=== PATIENT | female | born 1995 | race Two or more races ===

== ENCOUNTER 2024-05-09 05:17 | Emergency (ER) | payer MEDICAID, SELFPAY ==
[2024-05-09 05:18] VITALS: BMI 29.2
[2024-05-09 05:23] VITALS: BP 105/72; PULSE 84; RESP 20; TEMP 37; O2SAT 95
--- NOTE | 2024-05-09 05:55 | XR_ITS ---
Examination: Complete OB ultrasound, less than 14 weeks, transabdominal Date and time of exam: May 09, 2024 0709 hrs. Indications: Onset vaginal bleeding and pelvic soreness today Technique: Obstetrical ultrasound images less than 14 weeks performed via transabdominal imaging Findings: A normal shaped single intrauterine gestation is present in the uterus. pole 1.2 cm corresponds to 7 weeks 3 days gestational age No subchorionic hemorrhage Cardiac motion 155 BPM Ultrasonographic survey of visible and placental structures unremarkable. Amniotic fluid volume appears appropriate for this estimated gestational age. Right ovary 2.9 x 2.0 x 2.2 cm arterial flow Left ovary 2.8 x 1.6 x 2.4 cm arterial flow Impression: Viable intrauterine gestation 7 weeks 3 days Cardiac motion 155 BPM No subchorionic hemorrhage Negative for ovarian torsion.
--- NOTE | 2024-05-09 05:55 | PD.EDRME ---
Rapid Medical Screening Exam [facility] Arrival date/time: 05/09/24 05:17 29F at approximately 8 weeks and with no significant PMH presents to ED with 2 days of pelvic pain and vaginal bleeding. Chief Complaint: Vaginal Bleeding Vital signs: Vital Signs Temperature 98.6 F 05/09/24 05:23 Pulse Rate 84 05/09/24 05:23 Respiratory Rate 20 05/09/24 05:23 Blood Pressure 105/72 05/09/24 05:23 Pulse Oximetry (%) 95 05/09/24 05:23 Oxygen Delivery Method Room Air 05/09/24 05:23
[2024-05-09 06:08] LABS: Collection Type, Urine Clean Catch
[2024-05-09 06:17] LABS: Bilirubin,Urine Negative (Negative); Blood,Urine 3+ (Negative); Clarity,Urine Turbid (Clear/Hazy); Color,Urine Yellow (Lt Yel-Yel); Glucose, Urine Negative (Negative); Ketones,Urine Negative (Negative); Leukocyte Esterase,Urine Negative (Negative); Nitrite,Urine Negative (Negative); Protein,Urine 1+ (Neg - Trace); RBC,Urine 1026 /hpf (0-3); Squamous Epithelial Cell,Urine 2 /hpf (0-5); Urobilinogen,Urine Negative mg/dL (0.0-1.0); WBC,Urine 10 /hpf (0-5)
[2024-05-09 07:16] LABS: Basophils % (Auto) 0 % (0-2.5); Eosinophils # (Auto) 0.1 Thou/mm3 (0.0-0.5); Eosinophils % (Auto) 2 % (0-10); Hematocrit 36.9 % (36.0-46.0); Immature Granulocytes % (Auto) 0 % (0-0); Immature Granulocytes Auto 0.02 Thou/mm3 (0.00-0.00); Lymphocytes # (Auto) 2.1 Thou/mm3 (1.0-4.8); Lymphocytes % (Auto) 28 % (10-50); Mean Corpuscular HGB Conc 32.5 g/dl (31.0-37.0); Mean Corpuscular Hemoglobin 29.5 pg (25.0-35.0); Mean Corpuscular Volume 91 fL (80-100); Monocytes # (Auto) 0.5 Thou/mm3 (0.0-0.8); Monocytes % (Auto) 7 % (0-12); Neutrophils # (Auto) 4.8 Thou/mm3 (1.8-7.7); Neutrophils % (Auto) 64 % (37-80); Nucleated Red Blood Cell % 0 /100 WBC (0); Platelet Count 240 Thou/mm3 (140-440); RDW Standard Deviation 42.5 fL (36.4-46.3); Red Blood Count 4.07 Miln/mm3 (4.00-5.20); White Blood Count 7.5 Thou/mm3 (3.6-11.0)
[2024-05-09 07:25] LABS: Alanine Aminotransferase 25 U/L (10-49); Albumin, Serum 4.3 gm/dL (3.5-5.0); Albumin/Globulin Ratio 1.7 (1.2-2.2); Alkaline Phosphatase 63 U/L (46-116); Anion Gap 6 (7-16); Aspartate Amino Transferase 20 U/L (0-34); BUN/Creatinine Ratio 10 Ratio (12-20); Bilirubin,Total 0.4 mg/dL (0.3-1.2); Blood Urea Nitrogen 6 mg/dL (9-23); Calcium 9.2 mg/dL (8.3-10.6); Calcium (Corrected) 9.2 mg/dL (8.5-10.1); Carbon Dioxide 25.1 mMol/L (20.0-31.0); Chloride 104 mMol/L (98-107); Creatinine (Component) 0.6 mg/dL (0.6-1.3); Estimated Creatinine Clearance 126.7 mL/min (>60); Globulin 2.5 gm/dL (2.3-3.5); Glucose 96 mg/dL (74-106); Osmolality,Calculated 267 (275-295); Potassium 3.8 mMol/L (3.4-5.1); Sodium 135 mMol/L (136-145); Total Protein 6.8 gm/dL (5.7-8.2); eGFR > 60 See Note
[2024-05-09 08:09] LABS: Beta HCG,Quantitative 113998 mIU/mL (<5.0)
[2024-05-09 09:19] VITALS: BP 98/59; PULSE 71; RESP 19; TEMP 36.9; O2SAT 100
--- NOTE | 2024-05-09 11:03 | EDNOTE_ITS ---
ED OB Contraction Preg RMI/HPI General Chief complaint: Vaginal Bleeding Stated complaint: VAGINAL BLEEDING Time Seen by Provider: 05/09/24 09:43 Source: patient Arrival date/time: 05/09/24 0600 This is a 29-year-old female who presents to the emergency department complaints of vaginal bleeding she does report she is approximately 6 weeks of gestation. This had been pelvic cramping and mild bleeding when wiping no fever, cough, shortness of breath, chest pain, chills, abdominal pain, diarrhea, dysuria, hematuria, hematochezia, melena, focal weakness, fall, blunt trauma, loss of consciousness, incontinence Mode of arrival: ambulatory RME / HPI RME / HPI Narrative: 05/09/24 05:17 29F at approximately 8 weeks and with no significant PMH presents to ED with 2 days of pelvic pain and vaginal bleeding. Related Data Previous Rx's ?Medication ?Instructions ?Recorded ibuprofen 600 mg tablet 600 mg PO TID PRN pain #20 tabs 12/02/17 naproxen 500 mg tablet 500 mg PO BID PRN pain #30 tabs 08/22/18 chlorhexidine gluconate 0.12 % 15 ml buccal BID #118 mL 12/13/21 mouthwash (Peridex) ibuprofen 600 mg tablet 600 mg PO Q6H #30 tabs 11/26/23 Allergies Allergy/AdvReac Type Severity Reaction Status Date / Time No Known Allergies Allergy Verified 11/26/23 13:55 Review of Systems Review of Systems Systems Reviewed: All systems reviewed, normal except as documented Narrative Review of Systems: Gen: No fever, no chills, no weight loss EYES: No discharge, no visual changes, no pain HEENT: No ear pain, no congestion, no sore throat PULM: No shortness of breath, no cough, no congestion CV: No chest pain, no dyspnea on exertion, no palpitations GI: No nausea, no vomiting, no diarrhea, no pain, no constipation : No frequency, no urgency,? no dysuria, +vag bleed Musc/skel: No joint pain, no back pain Skin: No rash? Psyc: No hallucinations, no depression Heme/Lymph: No easy bleeding or bruising tendencies Neuro: No weakness, no headache ED Exam Narrative Physical exam: General: Sittiing in Exam table in no acute distress, answering questions appropriately HENT: normocephalic, atraumatic, EOMI, PERRLA, moist mucous membranes Chest: chest wall is nontender Cardiac: regular rate and rhythm, normal S1 and S2, no murmurs, rubs, or gallops, capillary refill ?2 seconds Pulmonary: clear to auscultation bilaterally, no wheezing, crackles, or rhonchi Abdominal: active bowel sounds, soft, nontender, nondistended Neuro: A&OX3, CN II-XII intact, sensation grossly intact bilaterally in UE and LE. Skin: no rashes, no ecchymosis Ext: no lower extremity edema Course Quality Measures none Orders Category Date Time Status US OB <= 14 weeks fetus Stat Exams 05/09/24 05:55 Completed ABO/RH Type Stat Lab 05/09/24 06:25 Completed Beta HCG,Quantitative Stat Lab 05/09/24 06:25 Completed CBC Stat Lab 05/09/24 06:25 Completed CMP [Comprehensive Metabolic Panel] Stat Lab 05/09/24 06:25 Completed UA [Urinalysis] Stat Lab 05/09/24 06:02 Completed Urine Culture Stat Lab 05/09/24 06:02 Completed Vital Signs Vital signs: Vital Signs Temperature 98.6 F 05/09/24 05:23 Pulse Rate 84 05/09/24 05:23 Respiratory Rate 20 05/09/24 05:23 Blood Pressure 105/72 05/09/24 05:23 Pulse Oximetry (%) 95 05/09/24 05:23 Oxygen Delivery Method Room Air 05/09/24 05:23 Vaginal Bleeding Patient data External records reviewed:: [facility] previous records Clinical information provided by:: patient Social determinants that could affect healthcare access:: none Patient has the following chronic illnesses:: none How is presenting disease/condition affected by chronic disease/condition?: no chronic disease Evaluation data The following diagnostics were reviewed and interpreted by me:: radiology exam(s) Lab and/or radiology exams considered but not ordered:: none Interpretation Summary: Examination: Complete OB ultrasound, less than 14 weeks, transabdominal Date and time of exam: May 09, 2024 0709 hrs. Indications: Onset vaginal bleeding and pelvic soreness today Technique: Obstetrical ultrasound images less than 14 weeks performed via transabdominal imaging Findings: A normal shaped single intrauterine gestation is present in the uterus. pole 1.2 cm corresponds to 7 weeks 3 days gestational age No subchorionic hemorrhage Cardiac motion 155 BPM Ultrasonographic survey of visible and placental structures unremarkable. Amniotic fluid volume appears appropriate for this estimated gestational age. Right ovary 2.9 x 2.0 x 2.2 cm arterial flow Left ovary 2.8 x 1.6 x 2.4 cm arterial flow Impression: Viable intrauterine gestation 7 weeks 3 days Cardiac motion 155 BPM No subchorionic hemorrhage Negative for ovarian torsion. Medications / Prescriptions Medications or Prescriptions considered but not ordered:: none Medication administrations:: none Consultations Consultation(s) initiated? (list below): No Diagnosis Vaginal Bleeding Differential Diagnosis: threatened Most likely diagnosis given after review of the tests above:: Threatened Admission Indicated Admission indicated?: not indicated Explain why admission is indicated or not indicated:: none Admission Request Was there a request for admission?: No Disposition Plan Disposition Plan: Discharge Discharge Attestation Discharge Attestation: The patient and all family members were given an opportunity to ask questions and understood the discharge instructions. Discharge instructions specifically effects, indications for sooner follow up or return to the emergency department, and the expected course of current diagnosis. Patient condition: Stable Discharge Plan Plan Patient Disposition: HOME (Self Care) Patient condition on transfer: Stable Prescriptions/Referrals Prescriptions/Med Rec: No Action ibuprofen 600 mg tablet 600 mg PO TID PRN (Reason: pain) Qty: 20 0RF naproxen 500 mg tablet 500 mg PO BID PRN (Reason: pain) Qty: 30 0RF chlorhexidine gluconate [Peridex] 0.12 % mouthwash 15 ml buccal BID Qty: 118 0RF ibuprofen 600 mg tablet 600 mg PO Q6H Qty: 30 0RF Referrals: No Primary/Family,Physician [Primary Care Provider] - In 1 week Problem List Clinical Impression: Threatened Patient/Caregiver Discharge Instructions Discharge Activity: activity as tolerated Education Materials: ED Possible Miscarriage ... Additional Instructions: - please follow-up with your [facility] next week. - Have your hCG blood level and ultrasound repeated Your hCG level today was [id number] - pelvic rest no heavy lifting. Return to the emergency department is any worsening symptoms change in condition. Print Language: Hebrew Stand Alone Forms: [facility] Award Info., Patient Portal Info Letter PA/LUCI Supervising Physician PA/LUCI Supervising Physician: Dr Vásquez
== END 2024-05-09 11:39 | disposition home or self-care (01) ==
PROVIDERS: Physician Assistant; Emergency Provider Emergency Medicine
DX: O20.0 Threatened abortion (principal); Z3A.08 8 weeks gestation of pregnancy
CPT/HCPCS: 36415; 76801; 80053; 81001; 84702; 85025; 86900; 86901; 87086; 99284

== ENCOUNTER → 2024-06-04 | Outpatient (CLI) | payer MEDICAID, SELFPAY ==
--- NOTE | 2024-06-04 15:34 | XR_ITS ---
Examination: Complete OB ultrasound, less than 14 weeks, transabdominal Date and time of exam: June 04, 2024 1545 hours INDICATIONS: No heart tones detected in the doctor's office today, viable intrauterine gestation 7 weeks 3 days on pelvic sonogram May 09, 2024 Technique: Obstetrical ultrasound images less than 14 weeks performed via transabdominal imaging Findings: A normal shaped single intrauterine gestation is present in the uterus. pole 5.16 cm corresponds to 11 week 6 day gestational age Cardiac motion 157 BPM Ultrasonographic survey of visible and placental structures unremarkable. Amniotic fluid volume appears appropriate for this estimated gestational age. Right ovary 3.1 x 2.2 x 2.0 cm arterial flow Left ovary 2.7 x 1.5 x 1.6 cm arterial flow IMPRESSION: Viable intrauterine gestation 11 weeks 6 days.
== END | disposition home or self-care (01) ==
PROVIDERS: Referring Provider Obstetrics & Gynecology; Visit Provider Obstetrics & Gynecology
DX: O76 Abnormality in fetal heart rate and rhythm complicating labor and delivery (principal); Z3A.11 11 weeks gestation of pregnancy
CPT/HCPCS: 76801